=== PATIENT | female | born 1965 | race Caucasian/White ===

== ENCOUNTER 2022-11-24 11:54 | Inpatient (IN) | payer OTHER, BC ==
[2022-11-20 15:45] LABS: BASOPHILS # (AUTO) 0.1 X10'3 (0-0.2); BASOPHILS % (AUTO) 0.8 % (0-1); EOSINOPHILS # (AUTO) 0.2 X10'3 (0-0.9); EOSINOPHILS % (AUTO) 2.4 % (0-6); LYMPHOCYTES # (AUTO) 3.6 X10'3 (1.1-4.8); LYMPHOCYTES % (AUTO) 44.6 % (21-51); MEAN CORPUSCULAR HEMOGLOBIN 29.5 PG (27.0-31.0); MEAN CORPUSCULAR HGB CONC 33.6 g/dL (33.0-36.5); MEAN CORPUSCULAR VOLUME 87.9 FL (78-98); MEAN PLATELET VOLUME 8.2 FL (7.4-10.4); MONOCYTES # (AUTO) 0.5 X10'3 (0-0.9); MONOCYTES % (AUTO) 6.8 % (2-12); NEUTROPHILS # (AUTO) 3.6 X10'3 (1.8-7.7); NEUTROPHILS % (AUTO) 45.4 % (42-75); PRE OP HEMOGLOBIN 14.8 g/dL (12.0-16.0); PRE OP PLATELET COUNT 283 X10'3 (140-440); RED CELL DISTRIBUTION WIDTH 12.9 % (11.5-14.5)
[2022-11-20 16:00] LABS: ALBUMIN 3.9 G/DL (3.4-5.0); ALBUMIN/GLOBULIN RATIO 1.3 (1.1-1.5); ALKALINE PHOSPHATASE 97 IU/L (46-116); BLOOD UREA NITROGEN 17 MG/DL (7-18); BUN/CREATININE RATIO 17.7 (10.0-20.0); CALCIUM 9.4 MG/DL (8.5-10.1); CHLORIDE 104 MMOL/L (99-107); CREATININE 0.96 MG/DL (0.40-0.90); PRE OP ALT 35 U/L (30-65); PRE OP ANION GAP 8 (8-16); PRE OP AST 24 U/L (10-37); PRE OP BILIRUB, TOTAL 0.3 MG/DL (0.0-1.0); PRE OP GLUCOSE 112 MG/DL (70-104); PRE OP POTASSIUM 3.9 MMOL/L (3.4-5.1); PRE OP SODIUM 142 MMOL/L (135-145); TOTAL CARBON DIOXIDE 29.6 MMOL/L (24-32); eGFR 60 ML/MIN
[~2022-11-24] VITALS: Ht 160 cm; Wt 94.9 kg
[~2022-11-24 11:54] MED LIST: CYAN50009 PO; CYCL5TAB PO; DOXY25TA51 PO; GABA600T PO; IBUP-2803 PO; LACT1CAP65 PO; OMEP20CA16 PO; ROSU10TA2 PO; cefazolin 2gm/D5W 100mL 100 ML IV ONE; famotidine 20mg tablet PO ONE; ringers solution, lacted 1,000 ML IV SCH; tranexamic acid 650mg tablet PO ONE; vancomycin 1,500 MG in NS 300ml IV soln IV ONE
[2022-11-24 12:30] VITALS: BP 144/98
--- NOTE | 2022-11-24 13:30 | NUR ---
PT USED BACTROBAN AND SHOWERED DAILY W/HIBICLEANSE SOAP PER JOINT REPLACEMENT PROTOCOL FOR THE LAST 5 DAYS, PT HAS HAD A PREVIOUS KNEE REPLACEMENT AND DID NOT RE-WATCH OR READ BOOKLET. PT DENIES ANY DECREASED SENSATION IN BILAT LE'S, SHE STATES SHE HAS INTERMITTENT TINGLING IN BILAT LE'S. Addendum: 11/24/22 at 1631 by Taylor oKch RN Amended: Links added.
[2022-11-24] MEDS ORDERED: LIDOcaine 1% (10mg/ml) 2ml vial ONE (13:34)
[2022-11-24] MEDS ORDERED: ROPIVAcaine 0.5% (5mg/ml) 30ml vial ONE (14:21)
[2022-11-24] MEDS ORDERED: ketorolac trometh. 30mg/ml inj. ONE (14:22)
[2022-11-24] MEDS ORDERED: MIDAZolam 1mg/ml 10ml vial ONE (14:26)
[2022-11-24] MEDS ORDERED: fentaNYL/PF 50MCG/1 ML 2ML syringe ONE (14:26)
[2022-11-24] MEDS ORDERED: diphenhydrAMINE 25mg capsule PO PRN ×2 (15:20)
[2022-11-24] MEDS ORDERED: acetaminophen 325mg tablet PO PRN (15:20)
[2022-11-24] MEDS ORDERED: bisacodyl 10mg suppository rectal RC PRN (15:20)
[2022-11-24] MEDS ORDERED: magnesium hydroxide 30ml (MOM) UD suspension PO PRN (15:20)
[2022-11-24] MEDS ORDERED: DOXYLAMINE SUCCINATE 25 MG PO PRN (15:20)
[2022-11-24] MEDS ORDERED: naloxone 0.4 mg/ml inj IV PRN (15:20)
[2022-11-24] MEDS ORDERED: cyclobenzaprine 10mg tablet PO PRN (15:20)
[2022-11-24] MEDS ORDERED: HYDROcodone/acetaminophen 10/325mg tab PO PRN ×2 (15:20)
[2022-11-24] MEDS ORDERED: ondansetron/PF 4mg/2ml inj IV PRN (15:20)
--- NOTE | 2022-11-24 15:30 | NUR ---
PTS SURGERY HAS BEEN POSTPONED UNTIL TOMORROW, INFORMED PT AND PTS , SNACKS AND DRINKS GIVEN. Addendum: 11/24/22 at 1632 by Taylor Koch RN Amended: Links added.
[2022-11-24] MEDS: potassium cl 20mEq in 1/2 NS 1,000 ML IV SCH (16:30)
[2022-11-24 19:35] VITALS: BP 140/67
[2022-11-24] MEDS ORDERED: sennosides 8.6mg tablet PO SCH (21:00)
[2022-11-24] MEDS: atorvastatin 20mg tablet PO SCH (21:48)
[2022-11-24] MEDS: gabapentin 300mg capsule PO SCH (21:55)
[2022-11-24] MEDS: acetaminophen 325mg tablet PO SCH (21:56)
[2022-11-24 22:00] VITALS: BP 146/66
[2022-11-25] VITALS (17 sets, daily range): BP systolic 82–120; BP diastolic 39–72
[2022-11-25] MEDS: potassium cl 20mEq in 1/2 NS 1,000 ML IV SCH ×3 (00:30→18:45)
[2022-11-25] MEDS: acetaminophen 325mg tablet PO SCH ×4 (00:41→20:43)
[2022-11-25] MEDS ORDERED: cefazolin 2gm/D5W 100mL 100 ML IV ONE (05:30)
[2022-11-25] MEDS ORDERED: vancomycin 1,500 MG in NS 300ml IV soln IV ONE (05:30)
[2022-11-25] MEDS ORDERED: tranexamic acid 650mg tablet PO ONE (05:30)
[2022-11-25] MEDS ORDERED: famotidine 20mg tablet PO ONE (05:30)
[2022-11-25] MEDS ORDERED: ketorolac trometh. 30mg/ml inj. ONE (06:07)
[2022-11-25] MEDS ORDERED: ROPIVAcaine 0.5% (5mg/ml) 30ml vial ONE (06:08)
--- NOTE | 2022-11-25 06:19 | NUR ---
Problems reprioritized. Patient report given, questions answered & plan of care reviewed with ALEX GLASS.
[2022-11-25] MEDS ORDERED: MIDAZolam 1mg/ml 10ml vial ONE (07:01)
[2022-11-25] MEDS ORDERED: fentaNYL/PF 50MCG/1 ML 2ML syringe ONE (07:01)
[2022-11-25] MEDS: cyanocobalamin 500mcg tablet PO SCH (08:00)
[2022-11-25] MEDS: pantoprazole 40mg Tablet.DR PO SCH (08:00)
[2022-11-25] MEDS ORDERED: ACETAMINOPHEN PO SCH (08:00)
[2022-11-25] MEDS ORDERED: IBUPROFEN PO SCH (08:00)
[2022-11-25] MEDS: lactobacillus rhamnosus 10,000 MMU CELLS/CAPSULE PO SCH (08:00)
[2022-11-25] MEDS ORDERED: ringers solution, lacted 1,000 ML IV SCH (08:30)
[2022-11-25] MEDS ORDERED: ondansetron/PF 4mg/2ml inj IV PRN (08:30)
[2022-11-25] MEDS ORDERED: morphine 2 MG/ML inj. syringe IV PRN (08:30)
[2022-11-25] MEDS ORDERED: meperidine/PF 25mg/ml syringe IV PRN ×3 (08:30)
[2022-11-25] MEDS ORDERED: proCHLORperazine 10 MG/2 ml inj IV PRN (08:30)
[2022-11-25] MEDS ORDERED: morphine 4 MG/ML inj SYRINge IV PRN (08:30)
[2022-11-25] MEDS ORDERED: ROPIVAcaine 0.2% (10 MG/5 ML) BOLUS INJECTION ADDCANAL PRN (08:58)
[2022-11-25] MEDS ORDERED: ROPIVAcaine 0.2%/PF PUMP/bolus 545 ML ADDCANAL SCH (08:58)
--- NOTE | 2022-11-25 09:30 | NUR ---
Pt was taken to OR prior to completion of am assessments.
[2022-11-25] MEDS ORDERED: propofol inj 20 ML IV ONE (09:50)
[2022-11-25] MEDS ORDERED: LIDOcaine 1%/PF 5ML 10 MG/ML VIAL ONE (09:50)
[2022-11-25] MEDS ORDERED: cloNIDine hcl/PF 100mcg/ml inj ONE (10:05)
[2022-11-25] MEDS ORDERED: diphenhydrAMINE 25mg capsule PO PRN ×2 (10:45)
[2022-11-25] MEDS ORDERED: HYDROmorphone inj. 0.5 MG/0.5 ML DISP.SYRIN IV PRN (10:45)
[2022-11-25] MEDS ORDERED: HYDROmorphone 1 mg/ml syringe IV PRN (10:45)
[2022-11-25] MEDS ORDERED: dexamethasone sod phosphate 4mg/ml inj. ONE (10:45)
[2022-11-25] MEDS ORDERED: acetaminophen 325mg tablet PO PRN (10:45)
[2022-11-25] MEDS ORDERED: oxyCODONE IR 5mg (immed. release) tablet PO PRN (10:45)
[2022-11-25] MEDS ORDERED: bisacodyl 10mg suppository rectal RC PRN (10:45)
[2022-11-25] MEDS ORDERED: naloxone 0.4 mg/ml inj IV PRN (10:45)
[2022-11-25] MEDS ORDERED: magnesium hydroxide 30ml (MOM) UD suspension PO PRN (10:45)
--- NOTE | 2022-11-25 11:19 | NUR ---
Received from OR via [facility] BED WITH ALEJANDRO, accompanied by Anesthesiologist ROSEY and report given by Anesthesiolgist. PATIENT WITH 20G PIVI N RIGHT FOREARM THAT IS IS CDI, VSS DENIES PAIN AT; THIS TIME FULL MOVEMENT OF BILAT FEET. PATIENT WITH KNEE WRAP AND POWDER PACK PRESENT. + DP IN RIGHT FOOT. SCDS DONNED. ON Q SITE TO RIGHT THIGH PRESENT. Addendum: 11/25/22 at 1137 by Louis Forte RN, RN Amended: Links added.
--- NOTE | 2022-11-25 12:29 | NUR ---
PATIENT TAKEN TO ROOM WITH ALL BELONGINGS AND HOOKED UP TO MONITORS IN ROOM AND GIVEN CALL LIGHT, REPORT GIVEN TO RN WHO HAS TAKEN OVER PATIENT CARE. VSS. BED LOW AND LOVED ONE PRESENT AT BEDSIDE. PATIENT DENIES PAIN. ALL LINES CONNECTED AND VS MACHINE APPLIED. RN OR VN NOT PRESENT TO ACCEPT CARE OF PATIENT. FOUND VN THAT HAS PATIENT AND NOTIFIED OF ARRIVAL. FAMILY WITH PATIENT BELONGINGS. Addendum: 11/25/22 at 1249 by Louis Forte RN, RN Amended: Links added.
[2022-11-25] MEDS: ceFAZolin/D5W- 1GM premix 50 ML IV SCH ×2 (17:35→23:47)
--- NOTE | 2022-11-25 18:00 | NUR ---
Patient in room ORTHO 4023. I have received report from Malou JOHNSON and had the opportunity to ask questions and assume patient care.
--- NOTE | 2022-11-25 18:45 | NUR ---
I have reviewed and agree with interventions, assessments and documentation by Malou Belle LVN. Addendum: 11/26/22 at 0236 by Leslee German RN This was documented on the wrong patient.
[2022-11-25] MEDS ORDERED: vancomycin/NS 1 GM ADD-VANTAGE 250 ML IV SCH (20:00)
[2022-11-25] MEDS: sod chloride 0.9% 10ml flush syringe IV SCH (20:00)
[2022-11-25] MEDS: gabapentin 300mg capsule PO SCH (20:43)
[2022-11-25] MEDS: atorvastatin 20mg tablet PO SCH (20:43)
[2022-11-25] MEDS ORDERED: sennosides 8.6mg tablet PO SCH (21:00)
--- NOTE | 2022-11-25 22:00 | NUR ---
INCREASED HER ON Q BALL TO 8/HR AT 2245 FOR PAIN RELIEF.
[2022-11-25] MEDS: ondansetron/PF 4mg/2ml inj IV PRN (22:42)
[2022-11-25] MEDS: oxyCODONE IR 5mg (immed. release) tablet PO PRN (23:11)
[2022-11-26 02:00] VITALS: BP 99/39
[2022-11-26] MEDS: potassium cl 20mEq in 1/2 NS 1,000 ML IV SCH ×2 (02:45→10:45)
[2022-11-26] MEDS: acetaminophen 325mg tablet PO SCH ×2 (03:12→08:46)
--- NOTE | 2022-11-26 05:15 | NUR ---
rebollar removed no issues with taking it out, no pain and came out without problem.
--- NOTE | 2022-11-26 05:18 | NUR ---
On pt's assessment she can wiggle toes and push down on the right foot but she can't bring toes up towards her nose all night.
[2022-11-26] MEDS: ondansetron/PF 4mg/2ml inj IV PRN (05:37)
[2022-11-26 05:53] LABS: BASOPHILS % (AUTO) 0.2 % (0-1); EOSINOPHILS % (AUTO) 0.1 % (0-6); HEMATOCRIT 33.4 % (35.0-45.0); HEMOGLOBIN 11.3 g/dl (12.0-16.0); LYMPHOCYTES # (AUTO) 1.5 X10'3 (1.1-4.8); LYMPHOCYTES % (AUTO) 10.3 % (21-51); MEAN CORPUSCULAR HEMOGLOBIN 29.6 PG (27.0-31.0); MEAN CORPUSCULAR HGB CONC 33.8 g/dL (33.0-36.5); MEAN CORPUSCULAR VOLUME 87.7 FL (78-98); MEAN PLATELET VOLUME 8.1 FL (7.4-10.4); MONOCYTES # (AUTO) 1.1 X10'3 (0-0.9); MONOCYTES % (AUTO) 7.5 % (2-12); NEUTROPHILS # (AUTO) 12.3 X10'3 (1.8-7.7); NEUTROPHILS % (AUTO) 81.9 % (42-75); PLATELET COUNT 232 X10'3 (140-440); RED BLOOD COUNT 3.81 X10'6 (4.20-5.60); RED CELL DISTRIBUTION WIDTH 13.1 % (11.5-14.5); WHITE BLOOD COUNT 15.1 X10'3 (4.5-11.0)
[2022-11-26 06:00] VITALS: BP 121/62
[2022-11-26] MEDS: oxyCODONE IR 5mg (immed. release) tablet PO PRN ×2 (06:01→13:06)
[2022-11-26 06:24] LABS: ANION GAP 5 (8-16); CHLORIDE 109 MMOL/L (99-107); POTASSIUM 4.6 MMOL/L (3.5-5.1); SODIUM 142 MMOL/L (135-145); TOTAL CARBON DIOXIDE 27.9 MMOL/L (24-32)
--- NOTE | 2022-11-26 06:50 | NUR ---
Problems reprioritized. Patient report given, questions answered & plan of care reviewed with Yissel BERMUDEZ.
[2022-11-26 07:00] VITALS: BP 121/62
--- NOTE | 2022-11-26 07:02 | NUR ---
Patient in room ORTHO 4023. I have received report from LARA Camilo and had the opportunity to ask questions and assume patient care.
--- NOTE | 2022-11-26 07:12 | NUR ---
Report gave to LARA Raya due to patient reassignment.
[2022-11-26] MEDS: sod chloride 0.9% 10ml flush syringe IV SCH ×2 (08:00)
[2022-11-26] MEDS ORDERED: aspirin 325mg tablet PO SCH (08:30)
--- NOTE | 2022-11-26 08:30 | NUR ---
Pt reported R Knee pain. ON Q Pain pump increased to 12ml/hr.
[2022-11-26] MEDS: pantoprazole 40mg Tablet.DR PO SCH (08:46)
[2022-11-26] MEDS: cyanocobalamin 500mcg tablet PO SCH (08:47)
[2022-11-26] MEDS: lactobacillus rhamnosus 10,000 MMU CELLS/CAPSULE PO SCH (08:47)
[2022-11-26 10:00] VITALS: BP 115/47
--- NOTE | 2022-11-26 10:17 | NUR ---
Pt reported continued R Knee pain. ON Q pain pump increased to 14ml/hr. Encouraged use of pain button q3min on ON Q pain pump as well. Pt reported increased dorsiflexion and plantar flexion of R foot. Pt reported ready to work with PT.
[2022-11-26] MEDS ORDERED: mag hydrox/Alum hydrox/simeth 30ml oral suspension PO PRN (12:05)
[2022-11-26] MEDS ORDERED: ONDA4TAB12 PO (12:44)
[2022-11-26] MEDS ORDERED: acetaminophen 325mg tablet PO PRN (15:20)
[2022-11-27] MEDS ORDERED: acetaminophen 325mg tablet PO PRN (10:45)
== END 2022-11-26 13:20 | disposition home or self-care (01) | DRG 468 ==
LOC: UNDOADMIN 11:54 → PAS IN 11:54 → ORTHO 4S 19:25
PROVIDERS: ADMIT Orthopaedic Surgery; ATTEND Orthopaedic Surgery
PROC: 0SRC0J9 Replacement of Right Knee Joint with Synthetic Substitute, Cemented, Open Approach (ICD-10-PCS; 2022-11-25)
PROC: 3E0T3BZ Introduction of Anesthetic Agent into Peripheral Nerves and Plexi, Percutaneous Approach (ICD-10-PCS; 2022-11-25)
PROC: 3E0T33Z Introduction of Anti-inflammatory into Peripheral Nerves and Plexi, Percutaneous Approach (ICD-10-PCS; 2022-11-25)
PROC: 0SPC0JZ Removal of Synthetic Substitute from Right Knee Joint, Open Approach (ICD-10-PCS; principal; 2022-11-25 06:55)
DX: T84.022A Instability of internal right knee prosthesis, initial encounter (principal); Z96.651 Presence of right artificial knee joint; Y79.2 Prosthetic and other implants, materials and accessory orthopedic devices associated with adverse incidents; Z79.899 Other long term (current) drug therapy; Y92.89 Other specified places as the place of occurrence of the external cause
CPT/HCPCS: 36415; 73560; 80051; 80053; 82948; 85025; 87070; 87075; 87081; 87176; 97116; 97161; 97530; G0378; J0690; J0735; J1100; J1885; J2250; J2405; J2704; J2795; J3010; J3370; J3480; J3490; J7120

== ENCOUNTER 2025-06-01 08:57 | Inpatient (IN) | payer BC, OTHER ==
[~2025-06-01] VITALS: Ht 157.5 cm; Wt 60.7 kg
[~2025-06-01 08:57] MED LIST changes: +CYCL-920 PO; -CYCL5TAB PO; +ONDA-243 PO; -cefazolin 2gm/D5W 100mL 100 ML IV ONE; -famotidine 20mg tablet PO ONE; -ringers solution, lacted 1,000 ML IV SCH; -tranexamic acid 650mg tablet PO ONE; -vancomycin 1,500 MG in NS 300ml IV soln IV ONE
--- NOTE | 2025-06-01 09:27 | Physician Documentation ---
History of Present Illness Chief Complaint: Abdominal Pain w/vomiting Stated Complaint: ABD PAIN N/V Time Seen by MD: 09:09 OK to notify your PCP?: Yes Source: patient, family Mode of Arrival: POV Exam Limitations: no limitations HPI 60-year-old female who is here with h/o multiple abdominal surgeries (hysterectomy, cholecystectomy, appendectomy) presenting with generalized abdominal pain for two days. She can not keep even fluids down, states "sofia rything I eat or drink is coming up." She states the abdominal pain has been getting progressively worse since it started. She has had a few bouts of diarrhea. Denies any history of bowel obstruction. She is on Mounjaro her last dosage was five days ago. No recent dosage increases. She states she has not with nausea or abdominal pain since she got started on Mounjaro. She did have a surgery on her ankle to remove hardware from ankle replacement about 3weeks ago, but states she is not on any pain medication and had not dealt with constipation following the surgery. No fever, chills, chest pain, shortness of breath. Medication Reconciliation Allergies: Coded Allergies: Sulfa (Sulfonamide Antibiotics) (Verified Allergy, Unknown, RASH, 06/01/25) Scheduled Gabapentin (Neurontin), 900 MG PO HS, (Reported) Ibuprofen/Acetaminophen (Advil Dual Action 250Mg-125Mg), 1 TAB PO DAILY, (Reported) Lactobacillus Acidophilus (Probiotic), 1 CAP PO DAILY, (Reported) Scheduled PRN Cyclobenzaprine HCl (Cyclobenzaprine HCl), 1 TAB PO TID PRN for BACK PAIN, (Reported) ONDANSETRON ODT 4mg tablet (Ondansetron Odt), 1 TABLET PO Q6H PRN for nausea/vomiting Discontinued Medications Cyanocobalamin (Vitamin B-12) (Vitamin B12), 1 TAB PO DAILY, (Reported) Discontinued Reason: patient no longer taking Doxylamine Succinate (Sleep Aid), 25 MG PO HS PRN for sleep, (Reported) Discontinued Reason: patient no longer taking Omeprazole (Omeprazole), 1 CAP PO DAILY, (Reported) Discontinued Reason: patient no longer taking Rosuvastatin Calcium* (Crestor*), 1 TAB PO DAILY, (Reported) Discontinued Reason: patient no longer taking Past Medical History Past Medical History: Diabetes Past Surgical History: appendectomy, cholecystectomy, hysterectomy Drug Use: none Lives with: Spouse Lives In: Home Review of Systems All Other Systems at this time: Reviewed and Negative Physical Exam Vital Signs: Temperature: 98.0, Source: Temporal, Heart Rate: 88, Respiratory Rate: 19, BP: 133/76, Pulse Oximetry: 99, Weight: 60.700 Oxygen Flow Rate: 0 Physical Exam GENERAL: Alert, no acute distress. HEENT: NCAT, EOMI, PERRL, normal oropharynx, dry oral mucosa. NECK: Supple, trachea midline. CARDIAC: Regular rate and rhythm, no murmurs, rubs, or gallops. Equal distal pulses. No lower extremity edema, cap refill less than 2 seconds. RESPIRATORY: Equal breath sounds, clear to auscultation bilaterally, no respiratory distress. GASTROINTESTINAL: Non distended, soft, generalized TTP, +rebound. MUSCULOSKELETAL: Normal range of motion, nontender, no swelling. Normal gait. NEUROLOGICAL: Awake, alert, and oriented x 3. SKIN: Warm/dry, no pallor, no rash. PSYCH: Alert and appropriate. Affect congruent with mood. Speech is clear. Good eye contact. Progress Progress Note NG TUBE PLACED CALLED DR. GARCIA ONCALL SURGEON. REQUESTS OVERNIGHT PREP WITH REPEAT IMAGING. AWAITING HOSPITALIST RETURN CALL Results/Orders Results/Orders Orders - FARHEEN KO Normal Saline Bolus (06/01/25 09:20) Ondansetron Inj. (Zofran 4mg/2ml Vial) (06/01/25 09:20) Morphine 2mg/Ml Inj. (Morphine Inj.) (06/01/25 09:20) Ct Abdomen Pelvis (06/01/25 09:19) Vital Signs 06/01/25 09:00 Temp 98.0 Pulse 88 Resp 19 B/P (MAP) 133/76 Pulse Ox 99 O2 Flow Rate 0 Medical Decision Making Additional information obtaine: old records Findings previous two ER visits Differential Dx:Considerations: Bowel obstruction, Constipation, Diverticular disease, Gastritis/PUD, Gastroenteritis, GI hemorrhage, Hernia, Hepatitis, Inflammatory BD, Ischemic bowel, Pancreatitis, Trauma, intraabdominal, Urinary obstruction, Urinary tract infection, Urolithiasis Additional Comments DR. EVANS STATED THAT SINCE I SPOKE WITH DR. GARCIA SHE NEEDED ME TO PLACE THE REPEAT CT SCAN ORDER AFTER OVERNIGHT PREP. I EXPLAINED I HAVE NEVER ORDERED THIS AFTER A PATIENT IS ADMITTED AND I AM CONCERNED ABOUT SOMETHING NOT GETTING INPUTTED CORRECTLY BUT SHE INSISTED I PLACE THE ORDER. ORDER PLACED. Departure Time of Disposition: 10:41 Admitted to Inpatient Unit: to hospitalist, to surgeon Impression: Primary Impression: SBO (small bowel obstruction) Additional Impressions: Abdominal pain Qualified Codes: R10.84 - Generalized abdominal pain Nausea & vomiting Qualified Codes: R11.2 - Nausea with vomiting, unspecified Condition: Fair Referrals: NO PRIMARY CARE PROVIDER (PCP) Education Educated: Patient Educated regarding: diagnosis, treatment, need for follow up Signature Scribe Signature: x Attestation: FARHEEN Renee Jun 01, 2025 09:27
[2025-06-01] MEDS: normal saline 1000ML IV soln IVB ONE (09:39)
[2025-06-01] MEDS: ondansetron/PF 4mg/2ml inj IV ONE (09:39)
[2025-06-01 09:41] LABS: MEAN PLATELET VOLUME 7.8 FL (7.4-10.4); RED CELL DISTRIBUTION WIDTH 13.3 % (11.5-14.5)
[2025-06-01 09:42] LABS: LEUKOCYTE ESTERASE ,URINE SMALL (Neg); NITRITES, URINE NEGATIVE (Neg); OCCULT BLOOD,URINE NEGATIVE (Neg)
[2025-06-01 09:44] LABS: URINE HCG NEGATIVE (NEG)
[2025-06-01 09:49] LABS: UA COLLECTION TYPE CLN CATCH MIDSTREAM
[2025-06-01 09:50] LABS: MUCUS STRANDS FEW /LPF (Neg); SQUAMOUS EPITHELIAL CELL,UR MODERATE /LPF (FEW)
[2025-06-01 09:54] LABS: CREATININE 0.76 MG/DL (0.40-0.90); TOTAL CARBON DIOXIDE 27.5 MMOL/L (24-32); eCRCL 63 ML/MIN; eGFR 78 ML/MIN
[2025-06-01] MEDS ORDERED: iohexol 300mg/ml 100ml inj. ONE (09:56)
--- NOTE | 2025-06-01 10:27 | RADIOLOGY REPORT ---
EXAM: CT CT ABDOMEN PELVIS W/ IV CONTRAST HISTORY: generalized abdominal pain x2days with nausea and vomiting TECHNIQUE: Volumetric multidetector CT images of the abdomen and pelvis were obtained after the administration of intravenous contrast. All CT scans at this facility use dose modulation, iterative reconstruction, and/or weight based dosing when appropriate to reduce radiation dose to as low as reasonably achievable. COMPARISON: None FINDINGS: [LOWER CHEST]: The partially visualized lung bases are clear without a pleural effusion. [LIVER]: Normal hepatic size without suspicious focal lesion. [GALLBLADDER AND BILIARY TREE]: Surgically absent. [SPLEEN]: Unremarkable. [PANCREAS]: Unremarkable. [ADRENAL GLANDS]: Unremarkable [KIDNEYS]: No hydronephrosis. No nephroureterolithiasis. [BLADDER]: Unremarkable for the degree distention. [REPRODUCTIVE ORGANS]: Hysterectomy. [BOWEL/MESENTERY]: Stomach is normal. No CT evidence of bowel obstruction. [id number] stool burden. Air-fluid level throughout the central small bowel loops measuring up to 3.6 cm. Possible transition point in the right lower quadrant correlate for small bowel obstruction versus ileus. [ASCITES]: Absent [LYMPHADENOPATHY]: No pathologically enlarged lymph nodes by CT size criteria [VASCULATURE]: No aneurysmal dilatation. [ABDOMINAL WALL]: Unremarkable. [MUSCULOSKELETAL]: No acute fracture or aggressive focal osseous lesion. Multifocal degenerative change of the visualized spine. IMPRESSION: 1. Air-fluid level throughout the central small bowel loops measuring up to 3.6 cm. 2. Possible transition point in the right lower quadrant correlate for small bowel obstruction versus ileus.
--- NOTE | 2025-06-01 11:16 | RADIOLOGY REPORT ---
Indication: NG Placement Technique: DI ABDOMEN,SINGLE VIEW(KUB)[id number] Comparison: None FINDINGS/IMPRESSION: Nasogastric the stomach. Upper abdomen demonstrates multiple loops of dilated small bowel up to approximately 4.7 cm , concerning for bowel obstruction.
[2025-06-01] MEDS ORDERED: potassium Cl 20 mEq SR tablet PO PRN ×2 (11:55)
[2025-06-01] MEDS: normal saline 1000ml 1,000 ML IV SCH (11:55)
[2025-06-01] MEDS ORDERED: magnesium sulf-water 4G/100mL 100 ML IV PRN (11:55)
[2025-06-01] MEDS ORDERED: magnesium Cl slow-release 64mg tablet PO PRN (11:55)
[2025-06-01] MEDS ORDERED: magnesium sulf-water 2g/50mL 50 ML IV PRN (11:55)
[2025-06-01] MEDS ORDERED: bisacodyl 10mg suppository rectal RC PRN (11:55)
[2025-06-01] MEDS ORDERED: HYDROcodone/acetaminophen 5mg/325mg tablet PO PRN (11:55)
[2025-06-01] MEDS ORDERED: potassium Cl 40MEQ/1/2NS 520ml 520 ML IV PRN (11:55)
[2025-06-01] MEDS ORDERED: magnesium hydroxide 30ml (MOM) UD suspension PO PRN (11:55)
[2025-06-01 12:30] VITALS: BP 147/72; PULSE 78; RESP 18; TEMP 98; O2SAT 99
[2025-06-01] MEDS: morphine 4 MG/ML inj SYRINge IV PRN (16:04)
[2025-06-01] MEDS: ondansetron/PF 4mg/2ml inj IV PRN (16:04)
[2025-06-01] MEDS ORDERED: TIRZ10PE SQ (17:10)
--- NOTE | 2025-06-01 17:22 | PROGRESS NOTE ---
Progress Note ID Providers to CC ~ Progress Note Progress Note: pt seen and examined-needs repeat ct in am YOLIS FERNANDEZ MD Jun 01, 2025 17:22
[2025-06-01 18:00] VITALS: BP 119/62; PULSE 78; RESP 18; TEMP 98.5; O2SAT 99
[2025-06-01 20:00] VITALS: RESP 18; O2SAT 99
[2025-06-01] MEDS: K and/or MAG REPLACEMENT MC SCH (20:00)
--- NOTE | 2025-06-01 20:22 | HISTORY AND PHYSICAL ---
History & Physical Providers to ~ History of Present Illness Reason for Admit\Complaint: abdominal pain since last two days History of Present Illness Patient is 60-year-old female here in ER with her concern regarding abdominal pain which she noticed since last 2-3 days. She feel that pain was started over right mid abdomen but now she feel it it is moving to different area. As per patient yesterday off and on she had for bowel movement but small in amount and this morning she had another one bowel movement. She mentioned she is not able to pass the gas but she is burping more. Denied any blood noticed in stools. Status post hysterectomy, cholecystectomy and appendectomy done in past. She had extensive history of endometriosis in past in his per patient she had multiple procedure done for endometriosis treatment. The way she described her stools ( type 1 on [place] stool form scale ) it seems like she is constipated. As per her medication list she is taking ibuprofen cyclobenzaprine and gabapentin and Mounjaro. Patient's last hemoglobin A1c was 5.2 in I am not sure why she is taking Mounjaro? She denied any alcohol use tobacco or any recreational drugs. Patient was prescribed narcotic medication after she had her ankle surgery to remove hardware from ankle replacement but she only took one day those narcotic medication and not using it. Patient denied any similar bowel obstruction problem in past. No other associated symptoms fever or shaking chills noted. Further workup done in ER abdominal KUB showed multiple loops of dilated small bowel up to approximately 4.7 cm , concerning for bowel obstruction.CT ABDOMEN PELVISafter the administration of intravenous contrast Air-fluid level throughout the central small bowel loops measuring up to 3.6 cm. Possible transition point in the right lower quadrant correlate for small bowel obstruction versus ileus. Physician regulatory affairs assistant Stella spoke to Dr. Bradshaw and he recommended to order overnight preparation repeat imaging to her on phone . Allergies: Coded Allergies: Sulfa (Sulfonamide Antibiotics) (Verified Allergy, Unknown, RASH, 06/01/25) Home Medications Home Medications Active Ondansetron Odt (Ondansetron HCl) 4 Mg Tab.rapdis 1 Tablet PO Q6H PRN Reported Mounjaro (Tirzepatide) 10 Mg/0.5 Ml Pen.injctr 1 SQ Q7D Probiotic (Lactobacillus Acidophilus) 1 Each Capsule 1 Cap PO DAILY 10 Days Cyclobenzaprine HCl 5 Mg Tablet 1 Tab PO TID PRN 10 Days Neurontin (Gabapentin) 600 Mg Tablet 900 Mg PO HS Advil Dual Action 250Mg-125Mg (Ibuprofen/Acetaminophen) 1 Each Tablet 1 Tab PO DAILY Past Medical History Past Medical History History of diabetes ?? With a hemoglobin A1c of 5.2 Past Surgical History Surgical History Comment appendectomy, cholecystectomy, hysterectomy Past Social History Social History Comment She denied use of any alcohol tobacco or any recreational drugs. ROS ROS Review of system as mentioned above in HPI rest of the review of system unremarkable Exam Vitals: Vital Signs Date Time Temp Pulse Resp B/P (MAP) Pulse Ox O2 Delivery O2 Flow Rate FiO2 06/01/25 18:00 98.5 78 18 119/62 (81) 99 Room Air 06/01/25 14:18 0.0 General: General-patient not in any acute distress, alert awake oriented, age-appropriate HEENT-atraumatic normocephalic, neck supple without elevated JVD, No lymphadenopathy bilaterally. Eyes-no icterus or pallor seen in eyes Chest-clear to auscultation bilaterally, breathing nonlabored no tachypnea, no wheezing, no crepitation, no crackles. Heart-S1-S2 normal, regular heart rate no murmur Abdomen few bowel sounds positive on auscultation, soft nondistended , signs of discomfort present on palpation over right mid abdomen, bilateral lower abdomen no guarding, no rigidity Skin no active skin rash Neurology-grossly intact, nonfocal alert awake oriented Extremity- no pedal edema able to move all 4 extremities Psychiatry - patient is not confused or agitated cooperated during physical examination Diagnostic Data Last Recorded Lab Results: 06/01/2593006/01/25 09 Additional Plan Patient is 60-year-old female here in ER with her concern regarding abdominal pain which she noticed since last 2-3 days. Further workup done in ER abdominal KUB showed multiple loops of dilated small bowel up to approximately 4.7 cm , concerning for bowel obstruction.CT ABDOMEN PELVISafter the administration of intravenous contrast Air-fluid level throughout the central small bowel loops measuring up to 3.6 cm. Possible transition point in the right lower quadrant correlate for small bowel obstruction versus ileus. Physician regulatory affairs assistant Miss Douglas spoke to Dr. Bradshaw and he recommended to order overnight preparation repeat imaging to her on phone . # small-bowel obstruction-Dr. Ibarra aware regarding this patient's admission recommended overnight preparation. We will keep NPO and NG tube in place please. Patient is started on IV # As per her medication list she is taking ibuprofen cyclobenzaprine and gabapentin and Mounjaro. Patient's last hemoglobin A1c was 5.2 . Side effects of Mounjaro discussed with the patient in visit. ordered. hemoglobin A1c for a.m. We will continue to monitor patient's labs and vitals closely . All labs, diagnostic workup, old records and ER records reviewed . Code status discussed with the patient patient wishes full code . Her was present at bedside when we discussed the code status. Time spent in discussing code status 16 minutes. home medication reconciliation updated in electronic records. Further management depending on response to treatment and as per recommendation by Dr Rayo. I will continue to follow patient in a.m. Date of Service: Jun 01, 2025 Billing Provider: SHANAE EVANS MD Common Visit Codes: 72088-OUVFYFR INP/OBS CARE (HIGH) Secondary Visit Codes: 79325-BWMYSVRE CARE PLAN 30 MINUTES SHANAE EVANS MD Jun 01, 2025 20:22
[2025-06-01] MEDS: CefTRIAXone 2gm/D5W 50ml BAG 50 ML IV ONE (21:18)
[2025-06-01] MEDS: heparin, porcine 5000 units/ml vial SQ SCH (21:19)
[2025-06-01] MEDS ORDERED: dextrose 50%-water 50ml dispensing syringe IV PRN (21:35)
[2025-06-01] MEDS ORDERED: DEXTROSE 15 GM of carb/4 tabs (each vial/BOTTLE has 4 tablets) PO PRN (21:35)
[2025-06-01] MEDS ORDERED: glucagon, human recombinant 1mg kit SUBCUT PRN (21:35)
[2025-06-01 22:00] VITALS: BP 123/63; PULSE 73; RESP 16; TEMP 98.5; O2SAT 98
[2025-06-01] MEDS: diatr meglu/diatrizoate 30ml oral sol.-(3 dose) bottle PO SCH (22:09)
[2025-06-02] VITALS (22 sets, daily range): BP systolic 114–167; BP diastolic 60–91; PULSE 67–101; RESP 10–18; TEMP 97.5–99.1; O2SAT 96–100
[2025-06-02 06:03] LABS: MEAN PLATELET VOLUME 8.0 FL (7.4-10.4); RED CELL DISTRIBUTION WIDTH 13.3 % (11.5-14.5)
[2025-06-02 06:34] LABS: CREATININE 0.50 MG/DL (0.40-0.90); TOTAL CARBON DIOXIDE 27.1 MMOL/L (24-32); eCRCL 96 ML/MIN; eGFR > 90 ML/MIN
[2025-06-02] MEDS: lactobacillus rhamnosus 10,000 MMU CELLS/CAPSULE PO SCH (07:47)
--- NOTE | 2025-06-02 11:13 | PROGRESS NOTE ---
Progress Note ID Providers to CC ~ Progress Note Progress Note: persistent pain/vss/abd-mild distention/ct sbo a/p 1. sbo-pt needs ex lap-discussed procedure including risks/benefits/alter natives YOLIS FERNANDEZ MD Jun 02, 2025 11:13
--- NOTE | 2025-06-02 11:19 | RADIOLOGY REPORT ---
CT abdomen and pelvis without and with contrast INDICATION: repeat CT scan after overnight prep TECHNIQUE: Serial axial images were performed through the abdomen and pelvis and then reformatted in the sagittal and coronal plane. All CT scans at this medical facility are performed using dose modulation techniques as appropriate to a performed exam including the following: Automated exposure control was utilized; adjustment of the MA and/or KvP according to patient size; and use of iterative reconstruction technique. FINDINGS: Liver and spleen are normal in size without focal mass. No renal masses, stones or hydronephrosis. No masses or enlargement of the adrenal glands or pancreas. No biliary dilatation. The gallbladder is not seen. There is distention of small-bowel loops containing oral contrast. There is a transition point in the mid abdomen where nondistended loops of small bowel are seen. There is oral contrast in the colon which is also nondistended. Fecal residue in the colon. In the pelvis there is a small amount of free fluid present. The urinary bladder is smooth walled. No abnormal masses. No hernia sacs or adenopathy IMPRESSION: 1. Probable partial mid small bowel obstruction. Question of prior surgery in this region. Computed Tomographic Radiation Dosimetry Report: Total CTDI vol = 10 mGy Total DLP = 534 mGy-cm Low dose protocols were performed.
--- NOTE | 2025-06-02 11:36 | ELECTROCARDIOGRAPH REPORT ---
[facility] Test Date: 2025-06-02 Test Time: 11:32:55 Pat Name: REGINA VALDEZ Department: [address] Patient ID: [id number] Room: [address] Gender: F Telephone Information Clerk: : 1965 Requested By: YOLIS FERNANDEZ Order Number: [id number] Reading MD: Dr. Coby Foster Measurements Intervals [place] Rate: 73 P: 77 NV: 147 QRS: 84 QRSD: 83 T: 55 QT: 386 QTc: 426 Interpretive Statements Sinus rhythm Electronically Signed On 06-04-2025 6:44:[address] Coby Foster Please click the below link to view image of tracing.
[2025-06-02 11:56] LABS: INR 1.1 INR
[2025-06-02] MEDS ORDERED: hydrALAZINE 20mg/ml inj. IV PRN (12:00)
[2025-06-02] MEDS ORDERED: fentaNYL/PF 50MCG/1 ML 2ML syringe IV PRN ×2 (12:00)
[2025-06-02] MEDS ORDERED: labetalol 20mg/4ml (5mg/ml) syringe IV PRN (12:00)
[2025-06-02] MEDS ORDERED: ondansetron/PF 4mg/2ml inj IV PRN (12:00)
[2025-06-02] MEDS: ringers solution, lacted 1,000 ML IV SCH (12:00)
[2025-06-02] MEDS ORDERED: HYDROmorphone/PF 0.2 MG/ML SYRINGE IV PRN (12:00)
[2025-06-02] MEDS ORDERED: midazolam 1 mg/ML 2ml injection ONE (12:01)
[2025-06-02] MEDS ORDERED: fentaNYL /PF 50mcg/ml 5ml ampule ONE (12:01)
[2025-06-02] MEDS ORDERED: rocuronium 10mg/ml inj IV ONE (12:05)
[2025-06-02] MEDS ORDERED: propofol inj 20 ML IV ONE (12:05)
[2025-06-02] MEDS ORDERED: HYDROmorphone inj. 0.5 MG/0.5 ML DISP.SYRIN IV PRN (12:06)
[2025-06-02] MEDS ORDERED: dexamethasone sod phosphate 4mg/ml inj. ONE (12:22)
[2025-06-02] MEDS ORDERED: ceFOXitin 1000 MG inj ONE ×2 (12:22)
[2025-06-02] MEDS ORDERED: BUPIVACAINE liposomal/PF 13.3 MG/ML 10mL vial IM ONE (12:33)
[2025-06-02] MEDS ORDERED: BUPIVAcaine 2.5mg/ml inj 50ml vial (contains preservative) ONE (12:33)
--- NOTE | 2025-06-02 13:00 | OPERATIVE REPORT ---
Operative Report Providers to CC ~ Date of Procedure: Jun 02, 2025 Pre-Operative Diagnosis: Small-bowel obstruction Post-Operative Diagnosis SAME as PRE-Op Procedure Performed ex lap/ryan Surgeon: carlotta Tuck Pointer none Anesthesiologist: Jason Paulson Type of Anesthesia: General Findings: extensive adhesions Estimated Blood Loss: min Specimen Removed: culture YOLIS FERNANDEZ MD Jun 02, 2025 13:00
[2025-06-02] MEDS ORDERED: PCA WASTE DOCUMENTATION 1 MG ML MC SCH (13:05)
[2025-06-02] MEDS ORDERED: ondansetron/PF 4mg/2ml inj ONE (13:08)
[2025-06-02] MEDS: ketorolac trometh 30MG/ML vial 30 MG/ML VIAL IV SCH (13:24)
[2025-06-02] MEDS: acetaminophen 1,000mg/100ml IV 100 ML IV PRN (13:27)
[2025-06-02] MEDS: HYDROmorphone inj. 0.5 MG/0.5 ML DISP.SYRIN IV ONE (13:41)
[2025-06-02] MEDS: HYDROmorphone inj. 0.5 MG/0.5 ML DISP.SYRIN IV PRN ×2 (13:41→13:56)
--- NOTE | 2025-06-02 14:01 | OPERATIVE REPORT ---
DATE OF SURGERY: 06/02/2025 DICTATING PHYSICIAN: Jad Rayo MD DATE OF OPERATION: 06/02/2025 PREOPERATIVE DIAGNOSIS: Small bowel obstruction. POSTOPERATIVE DIAGNOSIS: Small bowel obstruction. PROCEDURES PERFORMED: Exploratory laparotomy. Lysis of adhesions. SURGEON: Jad Rayo MD. MICROFILM CAMERA OPERATOR: None. ANESTHESIA: General/Dr. Paulson. DRAINS: None. INDICATIONS FOR OPERATION: A 60-year-old female with multiple abdominal procedures, in the ER with abdominal pain and found to have a small bowel obstruction versus ileus. CAT scan confirmed the presence of persistent small bowel obstruction. Taken to surgery for laparotomy. INTRAOPERATIVE FINDINGS: The patient had excessive adhesions resulting in complete small bowel obstruction. Bowel was viable. DESCRIPTION OF PROCEDURE: The patient was placed supine on the operating table. After induction of general anesthesia and placement of endotracheal tube, the abdomen was prepped and draped. After a timeout was performed, the abdomen was entered via a midline incision. Adhesions were taken down. The patient had multiple loops of dilated small bowel resulting from extensive adhesions. Adhesions were then lysed and taken down. The bowel was then run from the ligament of Treitz to the ileocecal valve and found to be free of additional adhesions. The colon and cecum was mobilized as well. The abdomen was irrigated with a large amount of antibiotic-containing solution and good hemostasis was confirmed. Lap counts were correct. The rectus fascia was then closed with a running looped PDS suture. The skin was closed with clips. A dressing was applied. The patient was transferred to recovery in stable condition. Jad Rayo MD TID: [id number] RECEIPT: [id number] KB/SUM
[2025-06-02] MEDS ORDERED: HYDROmorph/NS 0.2 mg/ml PCA 100 ML IV SCH (15:55)
[2025-06-02] MEDS: ceFOXitin 1 GM/D5W 50mL IVPB 50 ML IV SCH (16:15)
[2025-06-02] MEDS: HYDROmorph/NS 0.2 mg/ml PCA 100 ML IV SCH (17:36)
--- NOTE | 2025-06-02 19:03 | PROGRESS NOTE ---
Daily Progress Note Providers to CC ~ Antibiotic Timeout Antibiotic Ordered?: No Subjective patient is seen before she left for her surgery with Dr. Bradshaw for small bowel obstruction. Patient is still having pain over upper abdomen and right lower quadrant on palpation. She is also concerned about ear pain which is new finding since yesterday. Objective Vital Signs Date Time Temp Pulse Resp B/P (MAP) Pulse Ox O2 Delivery O2 Flow Rate FiO2 06/02/25 18:30 98.0 85 16 131/62 (85) 99 Nasal Cannula 2.0 Result Diagram: 06/02/2551806/02/25518 General-patient not in any acute distress, alert awake oriented, age-appropriate HEENT-atraumatic normocephalic, neck supple without elevated JVD, No lymphadenopathy bilaterally. Eyes-no icterus or pallor seen in eyes Chest-clear to auscultation bilaterally, breathing nonlabored no tachypnea, no wheezing, no crepitation, no crackles. Heart-S1-S2 normal, regular heart rate no murmur Abdomen few bowel sounds positive on auscultation, soft nondistended , signs of discomfort present on palpation over right lower abdomen, bilateral upper abdomen no guarding, no rigidity Skin no active skin rash Neurology-grossly intact, nonfocal alert awake oriented Extremity- no pedal edema able to move all 4 extremities Psychiatry - patient is not confused or agitated cooperated during physical examination Coagulation Studies Laboratory Tests Test 06/02/25 11:31 Prothrombin Time 10.9 SECONDS (9.0-12.0) INR International Normalized Ratio 1.1 INR Coagulation Comments Problem\Assessment\Plan Patient is 60-year-old female here in ER with her concern regarding abdominal pain which she noticed since last 2-3 days. Further workup done in ER abdominal KUB showed multiple loops of dilated small bowel up to approximately 4.7 cm , concerning for bowel obstruction.CT ABDOMEN PELVISafter the administration of intravenous contrast Air-fluid level throughout the central small bowel loops measuring up to 3.6 cm. Possible transition point in the right lower quadrant correlate for small bowel obstruction versus ileus. Physician administrative support assistant Miss Douglas spoke to Dr. Bradshaw and he recommended to order overnight preparation repeat imaging to her on phone . # small-bowel obstruction-Dr. Bradshaw aware regarding this patient's admission recommended overnight preparation. We will keep NPO and NG tube in place please. Status post exploratory laparotomy, Lysis of adhesions done for small- bowel obstruction on 06/02/25. # As per her medication list she is taking ibuprofen cyclobenzaprine and gabapentin and Mounjaro. Patient's last hemoglobin A1c was 5.2 . Side effects of Mounjaro discussed with the patient in visit. ordered. hemoglobin A1c 5.0 patient is advised to stop Mounjaro and risks explained # Code status discussed with the patient patient wishes full code We will continue to monitor patient's labs and vitals closely . home medication reconciliation updated in electronic records. Further management depending on response to treatment and as per recommendation by Dr Rayo. I will continue to follow patient in a.m. Date of Service: Jun 02, 2025 Billing Provider: SHANAE EVANS MD Common Visit Codes: [id number] INP/OBS CARE(HIGH) SHANAE EVANS MD Jun 02, 2025 19:03
[2025-06-03] VITALS (7 sets, daily range): BP systolic 91–129; BP diastolic 50–69; PULSE 70–84; RESP 14–20; TEMP 97.5–99.8; O2SAT 96–98
[2025-06-03 05:32] LABS: MEAN PLATELET VOLUME 7.7 FL (7.4-10.4); RED CELL DISTRIBUTION WIDTH 13.2 % (11.5-14.5)
[2025-06-03 05:49] LABS: CREATININE 0.40 MG/DL (0.40-0.90); TOTAL CARBON DIOXIDE 29.0 MMOL/L (24-32); eCRCL 120 ML/MIN; eGFR > 90 ML/MIN
--- NOTE | 2025-06-03 13:54 | PROGRESS NOTE ---
Progress Note ID Providers to CC ~ Progress Note Progress Note: pain improving/vss/abd-nondistended/labs noted a/p 1. s/p ryan-doing well/cont supportive care YOLIS FERNANDEZ MD Jun 03, 2025 13:54
--- NOTE | 2025-06-03 18:46 | PROGRESS NOTE ---
Daily Progress Note Providers to CC ~ Antibiotic Timeout Antibiotic Ordered?: No Subjective Was seen in her room in presence of her surgical nursing staff Rocio today . NG tube in place. Bowel sounds present on auscultation patient is ambulating has not pass the gas yet. Objective Vital Signs Date Time Temp Pulse Resp B/P (MAP) Pulse Ox O2 Delivery O2 Flow Rate FiO2 06/03/25 17:00 16 06/03/25 06:53 96 Nasal Cannula 2.0 06/03/25 06:32 99.2 70 91/50 (10) 28 Result Diagram: 06/03/25 0517 06/03/2517 General-patient not in any acute distress, alert awake oriented, age-appropriate HEENT-atraumatic normocephalic, neck supple without elevated JVD, No lymphadenopathy bilaterally. Eyes-no icterus or pallor seen in eyes Chest-clear to auscultation bilaterally, breathing nonlabored no tachypnea, no wheezing, no crepitation, no crackles. Heart-S1-S2 normal, regular heart rate no murmur Abdomen few bowel sounds positive on auscultation, soft nondistended , signs of discomfort present on palpation over surgical site, no guarding, no rigidity Skin no active skin rash Neurology-grossly intact, nonfocal alert awake oriented Extremity- no pedal edema able to move all 4 extremities Psychiatry - patient is not confused or agitated cooperated during physical examination Coagulation Studies Laboratory Tests Test 06/02/25 11:31 Prothrombin Time 10.9 SECONDS (9.0-12.0) INR International Normalized Ratio 1.1 INR Coagulation Comments Problem\Assessment\Plan Patient is 60-year-old female here in ER with her concern regarding abdominal pain which she noticed since last 2-3 days. Further workup done in ER abdominal KUB showed multiple loops of dilated small bowel up to approximately 4.7 cm , concerning for bowel obstruction.CT ABDOMEN PELVISafter the administration of intravenous contrast Air-fluid level throughout the central small bowel loops measuring up to 3.6 cm. Possible transition point in the right lower quadrant correlate for small bowel obstruction versus ileus. Physician expanded function dental assistant Miss Douglas spoke to Dr. Bradshaw and he recommended to order overnight preparation repeat imaging to her on phone . # small-bowel obstruction-Dr. Bradshaw aware regarding this patient's admission recommended overnight preparation. We will keep NPO and NG tube in place please. Status post exploratory laparotomy, Lysis of adhesions done for small- bowel obstruction on 06/02/25. # As per her medication list she is taking ibuprofen cyclobenzaprine and gabapentin and Mounjaro. Patient's last hemoglobin A1c was 5.2 . Side effects of Mounjaro discussed with the patient in visit. ordered. hemoglobin A1c 5.0 patient is advised to stop Mounjaro and risks explained # Code status discussed with the patient patient wishes full code We will continue to monitor patient's labs and vitals closely . home medication reconciliation updated in electronic records. Further management depending on response to treatment and as per recommendation by Dr Rayo. I will continue to follow patient in a.m. Date of Service: Jun 03, 2025 Billing Provider: SHANAE EVANS MD Common Visit Codes: [id number] INP/OBS CARE(HIGH) SHANAE EVANS MD Jun 03, 2025 18:46
--- NOTE | 2025-06-04 01:23 | CONSULTATION ---
DATE OF CONSULTATION: 06/01/2025 DICTATING PHYSICIAN: Jad Rayo MD REASON FOR CONSULTATION: Evaluation of abdominal pain. HISTORY OF PRESENT ILLNESS: The patient is a 60-year-old female with multiple previous abdominal procedures. She complains of abdominal pain for the past few days. Passing no gas in a few days. She had previous hysterectomy for endometriosis, cholecystectomy and appendectomy. Complains severe weight loss. PAST MEDICAL HISTORY: Includes history of diabetes. PAST SURGICAL HISTORY: Includes appendectomy, cholecystectomy, hysterectomy, endometriosis. HOME MEDICATIONS: Include Mounjaro, cyclobenzaprine, and Neurontin. ALLERGIES: SULFA. SOCIAL HISTORY: Denies tobacco or alcohol use. REVIEW OF SYSTEMS: See H and P. PHYSICAL EXAMINATION: GENERAL: She is a well-nourished female. VITAL SIGNS: Vital signs unremarkable. HEART: Regular rate and rhythm. LUNGS: Clear to auscultation. ABDOMEN: Abdomen is distended. Some mild right lower quadrant tenderness. No hernias noted. EXTREMITIES: Unremarkable. NEUROLOGIC: Nonfocal. LABORATORY DATA: Labs include WBC of 7, hematocrit of 40, platelet count is 334, no significant left shift. Chemistries including creatinine of 21.76, bicarbonate 27, procalcitonin less than 0.05. IMAGING STUDIES: CAT scan reveals evidence of small bowel with decompressed small bowel distally. IMPRESSION: 1. SBO versus ileus. 2. History of diabetes. RECOMMENDATIONS: 1. Admit. 2. Hydrate. 3. Repeat CT abdomen with oral contrast. Jad Rayo MD TID: [id number] RECEIPT: [id number] KB/JAELYN
[2025-06-04 05:54] LABS: MEAN PLATELET VOLUME 8.0 FL (7.4-10.4); RED CELL DISTRIBUTION WIDTH 13.0 % (11.5-14.5)
[2025-06-04 06:00] VITALS: BP 102/52; PULSE 79; RESP 18; TEMP 98.1; O2SAT 94
[2025-06-04 06:28] LABS: CREATININE 0.33 MG/DL (0.40-0.90); TOTAL CARBON DIOXIDE 30.4 MMOL/L (24-32); eCRCL 145 ML/MIN; eGFR > 90 ML/MIN
[2025-06-04 08:30] VITALS: RESP 16
[2025-06-04 10:00] VITALS: BP 100/50; PULSE 77; RESP 16; TEMP 98.2; O2SAT 94
[2025-06-04] MEDS ORDERED: ciprofloxacin 250mg tablet PO ONE (11:55)
[2025-06-04] MEDS: POTASSIUM BICARB 20meq eff tab 20 MEQ TABLET.EFF PO PRN (15:19)
[2025-06-04] MEDS: ciprofloxacin lact 400MG/200ML 200 ML IV ONE (15:20)
[2025-06-04] MEDS: PCA WASTE DOCUMENTATION 1 MG ML MC SCH (17:15)
[2025-06-04 18:00] VITALS: BP 121/68; PULSE 68; RESP 18; TEMP 98.2; O2SAT 97
--- NOTE | 2025-06-04 18:52 | PROGRESS NOTE ---
Progress Note ID Providers to CC ~ Progress Note Progress Note: pain improving-no flatus/labs noted a/p 1.. s/p ryan-slow progress/cont npo YOLIS FERNANDEZ MD Jun 04, 2025 18:52
--- NOTE | 2025-06-04 19:52 | PROGRESS NOTE ---
Daily Progress Note Providers to CC ~ Antibiotic Timeout Antibiotic Ordered?: Yes Subjective She is seen in presence of her today. As per nursing staff Estephania they took out 600 mL from NG tube last night and we will continue to monitor output as recommended by Dr. Bradshaw.. Denied any symptoms suggestive of acute UTI but urine culture positive for UTI. Cipro one dose ordered today and we will continue to monitor patient's blood counts. Objective Vital Signs Date Time Temp Pulse Resp B/P (MAP) Pulse Ox O2 Delivery O2 Flow Rate FiO2 06/04/25 19:00 16 06/04/25 10:00 98.2 77 100/50 (67) 94 Room Air 06/03/25 18:45 0.0 06/03/25 18:45 28 Result Diagram: 06/04/25 0506 06/04/25 0506 General-patient not in any acute distress, alert awake oriented, age-appropriate HEENT-atraumatic normocephalic, neck supple without elevated JVD, No lymphadenopathy bilaterally. Eyes-no icterus or pallor seen in eyes Chest-clear to auscultation bilaterally, breathing nonlabored no tachypnea, no wheezing, no crepitation, no crackles. Heart-S1-S2 normal, regular heart rate no murmur Abdomen - bowel sounds positive on auscultation, soft nondistended , signs of discomfort present on palpation over surgical site, no guarding, no rigidity Skin no active skin rash Neurology-grossly intact, nonfocal alert awake oriented Extremity- no pedal edema able to move all 4 extremities Psychiatry - patient is not confused or agitated cooperated during physical examination Coagulation Studies Laboratory Tests Test 06/02/25 11:31 Prothrombin Time 10.9 SECONDS (9.0-12.0) INR International Normalized Ratio 1.1 INR Coagulation Comments Problem\Assessment\Plan Patient is 60-year-old female here in ER with her concern regarding abdominal pain which she noticed since last 2-3 days. Further workup done in ER abdominal KUB showed multiple loops of dilated small bowel up to approximately 4.7 cm , concerning for bowel obstruction.CT ABDOMEN PELVISafter the administration of intravenous contrast Air-fluid level throughout the central small bowel loops measuring up to 3.6 cm. Possible transition point in the right lower quadrant correlate for small bowel obstruction versus ileus. Physician assistant professor of education Miss Douglas spoke to Dr. Bradshaw and he recommended to order overnight preparation repeat imaging to her on phone . # small-bowel obstruction-Dr. Bradshaw aware regarding this patient's admission recommended overnight preparation. We will keep NPO and NG tube in place please. Status post exploratory laparotomy, Lysis of adhesions done for small- bowel obstruction on 06/02/25. # As per her medication list she is taking ibuprofen cyclobenzaprine and gabapentin and Mounjaro. Patient's last hemoglobin A1c was 5.2 . Side effects of Mounjaro discussed with the patient in visit. ordered. hemoglobin A1c 5.0 patient is advised to stop Mounjaro and risks explained # Hypokalemia- we will do the replacement of potassium as per protocol # Code status discussed with the patient patient wishes full code We will continue to monitor patient's labs and vitals closely . home medication reconciliation updated in electronic records. Further management depending on response to treatment and as per recommendation by Dr Rayo. I will continue to follow patient in a.m. Date of Service: Jun 04, 2025 Billing Provider: SHANAE EVANS MD Common Visit Codes: [id number] INP/OBS CARE(HIGH) SHANAE EVANS MD Jun 04, 2025 19:52
[2025-06-04 20:00] VITALS: RESP 16; O2SAT 94
[2025-06-04] MEDS: dextrose 50%-water 50ml dispensing syringe IV PRN (20:19)
[2025-06-04 22:00] VITALS: BP 100/57; PULSE 76; RESP 18; TEMP 97.2; O2SAT 93
[2025-06-05 05:51] LABS: MEAN PLATELET VOLUME 8.6 FL (7.4-10.4); RED CELL DISTRIBUTION WIDTH 12.9 % (11.5-14.5)
[2025-06-05 06:36] VITALS: BP 119/56; PULSE 70; RESP 18; TEMP 98; O2SAT 98
[2025-06-05 09:35] VITALS: RESP 16
[2025-06-05 10:03] VITALS: BP 110/59; PULSE 69; RESP 16; TEMP 99.1; O2SAT 98
[2025-06-05 18:00] VITALS: BP 118/59; PULSE 74; RESP 18; TEMP 99.1; O2SAT 98
--- NOTE | 2025-06-05 18:14 | PROGRESS NOTE ---
Progress Note ID Providers to CC ~ Progress Note Progress Note: pain improving-+ flatus/vss/abd-min distention a/p 1. s/p ryan-slow progress/clears-pt YOLIS FERNANDEZ MD Jun 05, 2025 18:14
--- NOTE | 2025-06-05 19:32 | PROGRESS NOTE ---
Daily Progress Note Providers to CC ~ Antibiotic Timeout Antibiotic Ordered?: No Subjective Was seen in presence of nursing staff Estephania. Patient does not have NG tube anymore she is started on clear liquid diet by Dr. Bradshaw. Patient is ambulating. Further management as per Dr. Rayo Objective Vital Signs Date Time Temp Pulse Resp B/P (MAP) Pulse Ox O2 Delivery O2 Flow Rate FiO2 06/05/25 17:00 16 06/05/25 10:03 99.1 69 110/59 (76) 98 Room Air 06/03/25 18:45 0.0 06/03/25 18:45 28 Result Diagram: 06/05/25 0456 06/05/25 0456 General-patient not in any acute distress, alert awake oriented, age-appropriate HEENT-atraumatic normocephalic, neck supple without elevated JVD, No lymphadenopathy bilaterally. Eyes-no icterus or pallor seen in eyes Chest-clear to auscultation bilaterally, breathing nonlabored no tachypnea, no wheezing, no crepitation, no crackles. Heart-S1-S2 normal, regular heart rate no murmur Abdomen - bowel sounds positive on auscultation, soft nondistended , signs of discomfort present on palpation over surgical site, no guarding, no rigidity Skin no active skin rash Neurology-grossly intact, nonfocal alert awake oriented Extremity- no pedal edema able to move all 4 extremities Psychiatry - patient is not confused or agitated cooperated during physical examination Coagulation Studies Laboratory Tests Test 06/02/25 11:31 Prothrombin Time 10.9 SECONDS (9.0-12.0) INR International Normalized Ratio 1.1 INR Coagulation Comments Problem\Assessment\Plan Patient is 60-year-old female here in ER with her concern regarding abdominal pain which she noticed since last 2-3 days. Further workup done in ER abdominal KUB showed multiple loops of dilated small bowel up to approximately 4.7 cm , concerning for bowel obstruction.CT ABDOMEN PELVISafter the administration of intravenous contrast Air-fluid level throughout the central small bowel loops measuring up to 3.6 cm. Possible transition point in the right lower quadrant correlate for small bowel obstruction versus ileus. Physician after school program assistant Miss Douglas spoke to Dr. Bradshaw and he recommended to order overnight preparation repeat imaging to her on phone . # small-bowel obstruction-Dr. Bradshaw aware regarding this patient's admission recommended overnight preparation. Patient does not have NG tube anymore she is started on clear liquid diet by Dr. Bradshaw. Patient is ambulating. Status post exploratory laparotomy, Lysis of adhesions done for small-bowel obstruction on 06/02/25. # As per her medication list she is taking ibuprofen cyclobenzaprine and gabapentin and Mounjaro. Patient's last hemoglobin A1c was 5.2 . Side effects of Mounjaro discussed with the patient in visit. ordered. hemoglobin A1c 5.0 patient is advised to stop Mounjaro and risks explained # Hypokalemia- we will do the replacement of potassium as per protocol # Code status discussed with the patient patient wishes full code We will continue to monitor patient's labs and vitals closely . home medication reconciliation updated in electronic records. Further management depending on response to treatment and as per recommendation by Dr Rayo. I will continue to follow patient in a.m. Date of Service: Jun 05, 2025 Billing Provider: SHANAE EVANS MD Common Visit Codes: [id number] INP/OBS CARE(HIGH) SHANAE EVANS MD Jun 05, 2025 19:32
[2025-06-05 20:20] VITALS: RESP 16
[2025-06-05] MEDS: metoclopramide 5 mg/ml inj IV SCH (20:24)
[2025-06-05] MEDS: magnesium hydroxide 30ml (MOM) UD suspension PO SCH (20:25)
[2025-06-05 22:00] VITALS: BP 101/50; PULSE 74; RESP 16; TEMP 97.6; O2SAT 95
[2025-06-06 04:01] LABS: MEAN PLATELET VOLUME 7.9 FL (7.4-10.4); RED CELL DISTRIBUTION WIDTH 13.2 % (11.5-14.5)
[2025-06-06 06:00] VITALS: BP 109/62; PULSE 67; RESP 17; TEMP 98; O2SAT 95
[2025-06-06] MEDS: DEXTROSE 15 GM of carb/4 tabs (each vial/BOTTLE has 4 tablets) PO PRN (07:46)
[2025-06-06 09:20] LABS: CREATININE 0.44 MG/DL (0.40-0.90); TOTAL CARBON DIOXIDE 32.6 MMOL/L (24-32); eCRCL 109 ML/MIN; eGFR > 90 ML/MIN
[2025-06-06 10:00] VITALS: BP 103/45; PULSE 68; RESP 14; TEMP 97.6; O2SAT 96
[2025-06-06] MEDS: ondansetron/PF 4mg/2ml inj IV PRN (10:30)
--- NOTE | 2025-06-06 12:55 | PROGRESS NOTE ---
Progress Note ID Providers to CC ~ Progress Note Progress Note: pain improving/vss/abd-min distention/labs noted a/p 1. s/p ryan-doing well/advance po YOLIS FERNANDEZ MD Jun 06, 2025 12:55
[2025-06-06] MEDS: HYDROcodone/acetaminophen 5mg/325mg tablet PO PRN (13:20)
--- NOTE | 2025-06-06 16:30 | PROGRESS NOTE ---
Daily Progress Note Providers to CC ~ Antibiotic Timeout Antibiotic Ordered?: No Subjective she was seen in her room . Patient does not have NG tube anymore she is started on clear liquid diet by Dr. Bradshaw. Patient is ambulating. Further management as per Dr. Rayo Objective Vital Signs Date Time Temp Pulse Resp B/P (MAP) Pulse Ox O2 Delivery O2 Flow Rate FiO2 06/06/25 15:13 20 06/06/25 11:26 Room Air 0.0 21 06/06/25 10:00 97.6 68 103/45 (64) 96 Result Diagram: 06/06/25 0326 06/06/25 0326 General-patient not in any acute distress, alert awake oriented, age-appropriate HEENT-atraumatic normocephalic, neck supple without elevated JVD, No lymphadenopathy bilaterally. Eyes-no icterus or pallor seen in eyes Chest-clear to auscultation bilaterally, breathing nonlabored no tachypnea, no wheezing, no crepitation, no crackles. Heart-S1-S2 normal, regular heart rate no murmur Abdomen - bowel sounds positive on auscultation, soft nondistended , signs of discomfort present on palpation over surgical site, no guarding, no rigidity Skin no active skin rash Neurology-grossly intact, nonfocal alert awake oriented Extremity- no pedal edema able to move all 4 extremities Psychiatry - patient is not confused or agitated cooperated during physical examination Coagulation Studies Laboratory Tests Test 06/02/25 11:31 Prothrombin Time 10.9 SECONDS (9.0-12.0) INR International Normalized Ratio 1.1 INR Coagulation Comments Problem\Assessment\Plan Patient is 60-year-old female here in ER with her concern regarding abdominal pain which she noticed since last 2-3 days. Further workup done in ER abdominal KUB showed multiple loops of dilated small bowel up to approximately 4.7 cm , concerning for bowel obstruction.CT ABDOMEN PELVISafter the administration of intravenous contrast Air-fluid level throughout the central small bowel loops measuring up to 3.6 cm. Possible transition point in the right lower quadrant correlate for small bowel obstruction versus ileus. Physician dermatology physician assistant Miss Douglas spoke to Dr. Bradshaw and he recommended to order overnight preparation repeat imaging to her on phone . # small-bowel obstruction-Dr. Bradshaw aware regarding this patient's admission recommended overnight preparation. Patient does not have NG tube anymore she is started on clear liquid diet by Dr. Bradshaw. Patient is ambulating. Status post exploratory laparotomy, Lysis of adhesions done for small-bowel obstruction on 06/02/25. # As per her medication list she is taking ibuprofen cyclobenzaprine and gabapentin and Mounjaro. Patient's last hemoglobin A1c was 5.2 . Side effects of Mounjaro discussed with the patient in visit. ordered. hemoglobin A1c 5.0 patient is advised to stop Mounjaro and risks explained # Hypokalemia- we will do the replacement of potassium as per protocol # Code status discussed with the patient patient wishes full code We will continue to monitor patient's labs and vitals closely . home medication reconciliation updated in electronic records. Further management depending on response to treatment and as per recommendation by Dr Rayo. I will continue to follow patient in a.m. Date of Service: Jun 06, 2025 Billing Provider: SHANAE EVANS MD Common Visit Codes: [id number] INP/OBS CARE(HIGH) SHANAE EVANS MD Jun 06, 2025 16:30
[2025-06-06 18:00] VITALS: BP 116/68; PULSE 77; RESP 16; TEMP 97.8; O2SAT 98
[2025-06-06 20:00] VITALS: RESP 16; O2SAT 98
[2025-06-06 22:00] VITALS: BP 125/60; PULSE 78; RESP 14; TEMP 98; O2SAT 96
[2025-06-07] VITALS: TEMP 98.8
[2025-06-07] MEDS: HYDROmorphone inj. 0.5 MG/0.5 ML DISP.SYRIN IV PRN (01:53)
[2025-06-07 06:20] VITALS: BP 112/59; PULSE 80; RESP 14; TEMP 98.6; O2SAT 96
--- NOTE | 2025-06-07 10:09 | PROGRESS NOTE ---
Daily Progress Note Providers to CC ~ Antibiotic Timeout Antibiotic Ordered?: Yes Subjective No new complaints. Patient is seen resting comfortably. Son at bedside Objective Vital Signs Date Time Temp Pulse Resp B/P (MAP) Pulse Ox O2 Delivery O2 Flow Rate FiO2 06/07/25 08:56 Room Air 0.0 21 06/07/25 07:54 16 06/07/25 06:20 98.6 80 112/59 (76) 96 Result Diagram: 06/06/25 0326 06/07/25 0929 Gen. awake alert oriented asymptomatic HEENT: Normocephalic, atraumatic, extraocular movements are intact, sclera anicteric, conjunctiva pinkish, moist oral mucosa, no rash or ulcers. NECK: Supple, no JVD, trachea midline. CHEST: Clear to auscultation, no wheezes crackles or rhonchi. HEART: Regular rate rhythm, no murmur gallop or rub. ABDOMEN: Soft, nontender, no organomegaly. EXTREMITIES: No cyanosis clubbing or edema. NEURO EXAM: Grossly nonfocal. MUSCULOSKELETAL : No joint swelling or deformities. SKIN: No rash or ulcers noted. Bandage over the midline of abdomen Coagulation Studies Laboratory Tests Test 06/02/25 11:31 Prothrombin Time 10.9 SECONDS (9.0-12.0) INR International Normalized Ratio 1.1 INR Coagulation Comments Other Results Medications reviewed Problem\Assessment\Plan Patient is 60-year-old female presented to the ER for evaluation of abdominal pain.. Further workup done in ER abdominal KUB showed multiple loops of dilated small bowel up to approximately 4.7 cm , concerning for bowel obstruction. CT ABDOMEN PELVISafter the administration of intravenous contrast Air-fluid level throughout the central small bowel loops measuring up to 3.6 cm. Possible transition point in the right lower quadrant correlate for small bowel obstruction versus ileus. Physician assistant paralegal Miss Douglas consulted Dr. Bradshaw . # small-bowel obstruction- Status post exploratory laparotomy, Lysis of adhesions done for small-bowel obstruction on 06/02/25. Dr. Bradshaw following the patient . # Hypokalemia- Replace per protocol # Code status Full code. Date of Service: Jun 07, 2025 Billing Provider: ROBERTO RAMON MD Common Visit Codes: [id number] INP/OBS CARE(MOD) ROBERTO RAMON MD Jun 07, 2025 10:09
[2025-06-07 10:30] VITALS: BP 116/53; PULSE 81; RESP 16; TEMP 98.5; O2SAT 100
--- NOTE | 2025-06-07 11:57 | PROGRESS NOTE ---
Progress Note ID Providers to CC ~ Progress Note Progress Note: pain improved/vss/abd-soft/labs pending a/p 1. s/p ryan-persistent ileus/needs repeat ct-will likely need tpn YOLIS FERNANDEZ MD Jun 07, 2025 11:57
[2025-06-07] MEDS: diatr meglu/diatrizoate 30ml oral sol.-(3 dose) bottle PO SCH (11:58)
[2025-06-07 12:47] LABS: MEAN PLATELET VOLUME 7.4 FL (7.4-10.4); RED CELL DISTRIBUTION WIDTH 13.1 % (11.5-14.5)
[2025-06-07 12:59] LABS: CREATININE 0.64 MG/DL (0.40-0.90); TOTAL CARBON DIOXIDE 34.3 MMOL/L (24-32); eCRCL 75 ML/MIN; eGFR > 90 ML/MIN
[2025-06-07 18:00] VITALS: BP 139/77; PULSE 88; RESP 16; TEMP 99.9; O2SAT 95
--- NOTE | 2025-06-07 20:03 | RADIOLOGY REPORT ---
Exam: CT CT ABDOMEN PELVIS W/ ORAL CONTRAST History: abd pain and nausea Comparison Study: CT CT ABDOMEN PELVIS W/ ORAL CONTRAST on DOS: 06/02/25, CT CT ABDOMEN PELVIS W/ IV CONTRAST on DOS: 06/01/25 TECHNIQUE: Multidetector CT of the abdomen AND PELVIS without IV contrast. Axial, coronal and sagittal multiplanar reformats were obtained from the axial data set by the technologist. Radiation Dose Information: CT Dose: CTDI volume is 12.27 mGy. Dose-length product is 661.9 cm mGy*cm FINDINGS: Evaluation of solid organs is limited due to lack of intravenous contrast use. Findings: Lung Bases: No acute or significant lung base finding. Normal heart size. No pleural or pericardial effusion. Bibasilar atelectasis. Partially visualized heart is unremarkable. Trace ascites. Minimal amount of intraperitoneal free air which is most likely associated with the recent surgery. Status post cholecystectomy. Liver, spleen, pancreas and adrenal glands are unremarkable. Nonobstructing left renal 0.6 cm calculus. Otherwise, kidneys and ureters unremarkable. Urinary bladder is decompressed. Otherwise unremarkable. Oral contrast is noted within the stomach, small and large bowel loops. There is distention of the proximal and mid Small bowel loops up to 4.3 cm. Appendix is not definitely visualized. Moderate amount of fecal material with contrast noted up to the rectum. Mild rectal wall thickening. No evidence of aortic aneurysm. Mild atherosclerotic calcification of the aorta. No significant lymphadenopathy. Mild body wall edema. Interval midline postsurgical changes of the abdomen with overlying skin amrik. No evidence of acute osseous abnormalities. IMPRESSION: Interval postsurgical changes of midline ventral abdomen with mild body wall edema. Trace ascites. Minimal amount intraperitoneal free air which is most likely associated with the recent surgery. Distended small bowel loops measuring up to 4.3 cm with oral contrast passage into the large bowel most consistent with ileus/ partial bowel obstruction. Moderate amount of fecal material within the colon. Rectal wall thickening which may be due to inadequate distention/proctitis.
[2025-06-07 22:00] VITALS: BP 126/74; PULSE 81; RESP 16; TEMP 98.4; O2SAT 98
[2025-06-08 06:00] VITALS: BP 134/73; PULSE 81; RESP 15; TEMP 98.3; O2SAT 97
[2025-06-08 06:37] LABS: MEAN PLATELET VOLUME 7.3 FL (7.4-10.4); RED CELL DISTRIBUTION WIDTH 13.1 % (11.5-14.5)
[2025-06-08 07:12] LABS: CREATININE 0.55 MG/DL (0.40-0.90); TOTAL CARBON DIOXIDE 27.3 MMOL/L (24-32); eCRCL 87 ML/MIN; eGFR > 90 ML/MIN
[2025-06-08 10:00] VITALS: BP 142/79; PULSE 66; RESP 19; TEMP 97.9; O2SAT 100
--- NOTE | 2025-06-08 11:55 | PROGRESS NOTE ---
Progress Note ID Providers to CC ~ Progress Note Progress Note: doing well/ok to dc-will followup in office YOLIS FERNANDEZ MD Jun 08, 2025 11:55
[2025-06-08] MEDS: potassium Cl 20 mEq SR tablet PO STA (12:36)
--- NOTE | 2025-06-08 13:30 | DISCHARGE SUMMARY ---
Discharge Summary Providers to CC ~ Discharge Summary Admission Diagnosis: Small-bowel obstruction Hospital Course DATE OF ADMISSION: 06/01/2025 DATE OF DISCHARGE:06/08/2025 Discharge Diagnosis\Comment: SMALL-BOWEL OBSTRUCTION Operations\Procedures: Exploratory laparotomy, lysis of adhesions Consultants: Dr. Jad Rayo Complications: None Condition on DC: Stable Continued Medications: Cyclobenzaprine HCl (Cyclobenzaprine HCl) 5 Mg Tablet 1 TAB PO TID PRN for BACK PAIN for 10 Days, #30 TAB Gabapentin (Neurontin) 600 Mg Tablet 900 MG PO HS, TAB Ibuprofen/Acetaminophen (Advil Dual Action 250Mg-125Mg) 1 Each Tablet 1 TAB PO DAILY Lactobacillus Acidophilus (Probiotic) 1 Each Capsule 1 CAP PO DAILY for 10 Days, #30 CAP 0 Refills ONDANSETRON ODT 4mg tablet (Ondansetron Odt) 4 Mg Tab.rapdis 1 TABLET PO Q6H PRN for nausea/vomiting, #16 TABLET Tirzepatide (Mounjaro) 10 Mg/0.5 Ml Pen.injctr 1 SQ Q7D Discharge Summary: Reason for admission: 60 years old female presented to the ER for evaluation of abdominal pain. Please refer to admission H&P for more details Hospital course: Patient was admitted on the monitored floor under hospital course as follows. # small-bowel obstruction: Patient underwent exploratory laparotomy, lysis of adhesions on 06/02/[address] Rayo. Patient has done well and has been cleared for discharge by the surgeon. #hypokalemia: Replace per protocol # code status: Patient was kept as a full code Discharge exam: Examined the patient on the day of discharge. Awake alert in no acute distress HEENT normocephalic atraumatic extraocular movements are intact Neck supple, no JVD Chest clear to auscultation, no wheezes crackles rhonchi Heart regular rate rhythm, no murmur or gallop rub Abdomen is soft, nontender, no organomegaly Extremities no cyanosis clubbing or edema Neuro exam nonfocal. Patient is ambulating without assistance in the hallways Skin: Well-healing incision on the abdomen. Disposition: Home *Problems/Diagnosis: (1) Abdominal pain Status: Acute Total Time Spent on D/C: > 30 Minutes Date of Service: Jun 08, 2025 Billing Provider: ROBERTO RAMON MD Common Visit Codes: 87825-UFP/OBS DISCH DAY <30MIN Problem Qualifiers (1) Abdominal pain: Qualified Codes: R10.84 - Generalized abdominal pain ROBERTO RAMON MD Jun 08, 2025 13:30
== END 2025-06-08 13:30 | disposition home or self-care (01) | DRG 337 ==
LOC: ER 08:58 → ED HOLD 11:56 → SUR 3N 12:56
PROVIDERS: ADMIT Internal Medicine; ATTEND Internal Medicine
PROC: BW211ZZ Computerized Tomography (CT Scan) of Abdomen and Pelvis using Low Osmolar Contrast (ICD-10-PCS; 2025-06-01)
PROC: 0DN80ZZ Release Small Intestine, Open Approach (ICD-10-PCS; principal; 2025-06-02 11:57)
DX: K56.52 Intestinal adhesions [bands] with complete obstruction (principal); E11.9 Type 2 diabetes mellitus without complications; E87.6 Hypokalemia; Z90.49 Acquired absence of other specified parts of digestive tract; Z90.710 Acquired absence of both cervix and uterus; Z88.2 Allergy status to sulfonamides
CPT/HCPCS: 99285; Z7506; Z7508; 36415; 74018; 74176; 74177; 80048; 80053; 81001; 81025; 82948; 83036; 83605; 83690; 84132; 84145; 85025; 85610; 85651; 86885; 86900; 86901; 87040; 87070; 87075; 87077; 87081; 87088; 87102; 87186; 93005; A4314; A4615; A4618; A7000; C1758; G0378; J0131; J0666; J0694; J0696; J0744; J1100; J1171; J1644; J1885; J2250; J2270; J2405; J2704; J2765; J3010; J3490; J7030; J7042; J7120; Q9963; Q9967